=== PATIENT | female | born 1965 ===

== ENCOUNTER 2017-07-05 10:49 | Emergency (ER) | payer OTHER ==
--- NOTE | 2017-07-05 13:24 | C.PDOC ---
History Of Present Illness 51yo female, presents to ED for evaluation of left anterior shoulder pain, present for past 2 weeks. Patient reports no history of injury or trauma and denies any numbness, tingling, neck pain. She offers no other medical complaints. Time Seen by Provider: 07/05/17 11:44 Chief Complaint (Nursing): Upper Extremity Problem/Injury History Per: Patient History/Exam Limitations: no limitations Onset/Duration Of Symptoms: Days Past Medical History Reviewed: Historical Data, Nursing Documentation, Vital Signs Vital Signs: Last Vital Signs Temp 98.1 F 07/05/17 11:13 Pulse 82 07/05/17 11:13 Resp 20 07/05/17 11:13 BP 158/90 H 07/05/17 11:13 Pulse Ox 98 07/05/17 13:27 - Medical History PMH: HTN Surgical History: No Surg Hx Family History: States: No Known Family Hx - Social History Hx Alcohol Use: No Hx Substance Use: No - Immunization History Hx Tetanus Toxoid Vaccination: No Hx Influenza Vaccination: No Hx Pneumococcal Vaccination: No Review Of Systems Musculoskeletal: Positive for: Shoulder Pain (left). Negative for: Neck Pain Physical Exam - Physical Exam Additional Physical Exam Comments: Constitutional: No acute distress. WDWN. Head: Normocephalic. Atraumatic. Eyes: PERRL. EOMI. ENT: Moist mucous membranes. Neck: Supple. Cardiovascular: Regular rate and rhythm. Chest: No tenderness. Respiratory: Clear to auscultation bilaterally. GI: Soft. Nontender. Nondistended. Normoactive bowel sounds. No rebound. No guarding. Back: No CVA and no mid-line tenderness. Musculoskeletal: Extermities with normal capillary refill. Normal ROM of left wrist, elbow. Tenderness to left anterior shoulder and decreased ROM due to pain. Skin: No rash. Neurologic: Alert, no focal deficit. ED Course And Treatment O2 Sat by Pulse Oximetry: 98 (RA) Pulse Ox Interpretation: Normal Medical Decision Making Medical Decision Making: Impression: 51yo female w/ left shoulder pain Plan: -- POC Upreg 259 pm pt with no fx on xray. ? calcific tendonitis. will d/c home with sling, nsaids. ortho f/u Disposition Counseled Patient/Family Regarding: Studies Performed, Diagnosis, Need For Followup, Rx Given - Disposition Referrals: Rc Pacheco MD [Staff Provider] - Disposition: HOME/ ROUTINE Disposition Time: 15:01 Condition: STABLE Additional Instructions: [place] ibuprofeno segn las indicaciones. Use el cabestrillo david 2-3 zhou, y luego comience a technician test systems suavemente el hombro. Contine con la ortopedia. Recomiende las compresas fras al hombro 2-3 veces al da david 20 minutos a la vez. Prescriptions: Ibuprofen [Motrin] 600 mg PO TID #30 tab Instructions: Rotator Cuff Tendinitis (ED) Forms: Gen Discharge Inst [place], [facility] ([place]an) - Clinical Impression Clinical Impression: Shoulder pain, left
--- NOTE | 2017-07-05 14:27 | RAD ---
PROCEDURE: Radiographs of the Left Shoulder HISTORY: ant shoulder pain dec rom COMPARISON: None available. FINDINGS: BONES: No acute displaced fracture. The distal clavicle and underlying ribs appear intact. JOINTS: No acute dislocation. Calcifications adjacent to the humeral head consistent with calcific tendinitis. SOFT TISSUES: Soft tissues appear unremarkable. No evidence of radiopaque foreign body. IMPRESSION: No acute displaced fracture or dislocation evident. If symptoms persist or if there is continued clinical concern, x-ray follow-up in 7-10 days should be considered. Calcific tendinitis.
[2017-07-05 15:43] VITALS: BP 143/88; PULSE 66; RESP 18; TEMP 98.3; O2SAT 95
== END 2017-07-05 15:44 | disposition home or self-care (01) ==
LOC: C.ER 10:49
DX: M25.512 Pain in left shoulder (principal)
CPT/HCPCS: 73030; 96372; 99285; J1885